=== PATIENT | female | born 1995 | race Caucasian/White ===

== ENCOUNTER 2022-04-22 10:16 | Emergency (ER) | payer SELFPAY ==
--- NOTE | ~2022-04-22 | US_ITS ---
EXAMINATION: US pelvic complete w TV DATE: 04/22/2022 13:42 INDICATION: Possible IUD misplacement TECHNIQUE: Multiple transabdominal and endovaginal sonographic images of the pelvis were obtained. COMPARISON: None. FINDINGS: The uterus measures 8.5 x 3.4 x 6.6 cm. The endometrial complex measures 2 mm. The IUD is s een low in the uterus and endocervical segment. One arm of the IUD may be present in the anterior bod y of the lower uterus. The right ovary measures 3.5 x 2.4 x 2.6 cm. The left ovary measures 2.8 x 2.0 x 1.9 cm. There is normal vascular flow in the ovaries. There is no free fluid in the pelvis. IMPRESSION: 1. Malpositioned IUD in the endocervical portion of the uterus with one or possibly in the anterior b belkis of the lower uterus Reviewed, dictated and finalized at location L. S OPERATIONS ASSISTANT IMPRESSION: 1. Malpositioned IUD in the endocervical portion of the uterus with one or poss ibly in the anterior body of the lower uterus
[2022-04-22 10:28] VITALS: BP 146/97; PULSE 92; RESP 14; TEMP 36.4; O2SAT 97
--- NOTE | 2022-04-22 11:42 | ED.FEMALEGU ---
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 She denies any fever, chills, nausea, vomiting, abdominal pain, vaginal bleeding or discharge. Related Data Allergies Allergy/AdvReac Type Severity Reaction Status Date / Time bee venom protein (honey bee) Allergy Swelling Verified 04/22/22 11:55 [bees] fish derived Allergy Other Verified 04/22/22 11:55 Review of Systems Review of Systems: All systems reviewed & are unremarkable except as noted in HPI and below Exam Narrative: General appearance: Well-developed, well-nourished Skin: Normal color Head: Normocephalic, nontraumatic Eyes: Clear conjunctiva ENT: Oropharynx normal, ears normal, nose normal Neck: Supple, nontender Chest and respiratory: Airway patent, no respiratory distress, no accessory muscle use Heart: Regular rate/rhythm Abdomen: Soft, nontender, no organomegaly, quiet bowel sounds Vascular: Normal peripheral pulses, normal capillary refill. Musculoskeletal: Normal range of motion, nontender back Neurologic: Alert and oriented ?3, DIRECTOR ENGINEERING is normal as tested, no gross motor deficit : Speculum Exam - Vagina: normal appearance of the vagina and foreign body ( IUD wire is about 2 inches below the level of the cervix, no IUD is seen) Course Consultations Consultation #1: Dr. Jesús Kitchen Send patient to my office for contraceptive pills samples Date: 04/22/22 Time: 15:00 Vital Signs Vital signs: Vital Signs Temperature 36.4 C 04/22/22 10:28 Pulse Rate 92 04/22/22 10:28 Respiratory Rate 14 04/22/22 10:28 Blood Pressure 146/97 H 04/22/22 10:28 Pulse Oximetry 97 04/22/22 10:28 Temperature 36.3 C L 04/22/22 13:53 Pulse Rate 83 04/22/22 13:53 Respiratory Rate 15 04/22/22 13:53 Blood Pressure 145/86 H 04/22/22 13:53 Pulse Oximetry 98 04/22/22 13:53 Procedures Foreign Body Removal Foreign Body #1: Foreign Body Removal Date: 04/22/22 Foreign Body Removal Time: 15:07 Time Out Performed: yes (15 minutes) Site: vagina Description of foreign body: other (Here for IUD malplacement) Sedation/Analgesia: none Technique: manual removal (Pulling on the thread gradually and gently) Confirmed by:: direct visualization Complications: none Foreign Body Removal Narrative: IUD pulled out, no complication, patient tolerated the procedure well MDM - Female Genitourinary MDM Narrative Medical decision making narrative: Patient came with possible IUD in the vaginal pouch suddenly while working. She denies any pain. Physical examination showed the IUD wire without the IUD itself. Pelvic ultrasound ordered and showed IUD in the endocervical area. I was able to pull it out discussed with Dr. Jesús Kitchen who requested patient to go to his office now to get contraceptive pill samples. Patient tolerated the procedure well Differential Diagnosis Differential diagnosis: Likely other (IUD malposition) Lab Data Labs: UCG Bedside Result Negative Reference Range: Negative Critical Care Time Critical Care Time Critical Care Time: Yes Total Critical Care Time: 15 Discharge Plan Discharge Clinical Impress
--- NOTE | 2022-04-22 13:18 | PC.NURSE ---
Pt to u/s via w/c at this time.
[2022-04-22 13:53] VITALS: BP 145/86; PULSE 83; RESP 15; TEMP 36.3; O2SAT 98
== END 2022-04-22 15:23 | disposition home or self-care (01) ==
PROVIDERS: Emergency Provider Emergency Medicine
DX: T83.32XA Displacement of intrauterine contraceptive device, initial encounter (principal); Y76.8 Miscellaneous obstetric and gynecological devices associated with adverse incidents, not elsewhere classified
CPT/HCPCS: 58301; 76830; 76856; 81025; 99284